=== PATIENT | male | born 1955 | race African-American/Black ===

== ENCOUNTER 2016-08-26 11:09 | Day surgery (SDC) | payer BC ==
[~2016-08-26 11:09] MED LIST: ACETAMINOPHEN 1000MG/100 ML PREMIX IV ONE; CEFAZOLIN 2 Gram 50 ML IVPB ONE; FAMOTIDINE 20MG TABLET PO ONE; MECLIZINE 25 MG TABLET PO ONE; METOCLOPRAMIDE 10 MG TABLET PO ONE
[2016-08-26 11:19] LABS: HEMATOCRIT 40.6 % (42.0-52.0); HEMOGLOBIN 13.3 gm/dl (14.0-18.0); MEAN CELL VOLUME 84.1 fl (81-97); MEAN CORPUSCULAR HEMOGLOBIN 27.5 pg (27-33); MEAN CORPUSCULAR HGB CONC 32.8 g/dl (32-36); PLATELET COUNT 325 K/uL (130-400); RED BLOOD COUNT 4.83 M/uL (4.40-5.70)
[2016-08-26 11:30] LABS: PLATELET ESTIMATE NORMAL (NORMAL)
[2016-08-26 11:35] LABS: BLOOD UREA NITROGEN 15 mg/dL (9-20); EST GLOMERULAR FILTRATION RATE > 60 ml/min; GLUCOSE,RANDOM 111 mg/dL (70-110)
[2016-08-26] MEDS ORDERED: LIDOCAINE 2% MDV (20MG/ML) 20ML VIAL IV ONE (15:36)
[2016-08-26] MEDS ORDERED: EPHEDRINE SULFATE 50 MG/ML ML IV ONE (15:36)
[2016-08-26] MEDS ORDERED: MIDAZOLAM HCL 2MG/2ML VIAL IV ONE (15:36)
[2016-08-26] MEDS ORDERED: HYDROMORPHONE HCL 2 MG/ML VIAL IV ONE (15:36)
[2016-08-26] MEDS ORDERED: KETOROLAC 30 MG/ML VIAL IVP ONE (15:36)
[2016-08-26] MEDS ORDERED: PROPOFOL 10 MG/ML VIAL IV ONE (15:36)
[2016-08-26] MEDS ORDERED: HYDROCODONE/APAP 7.5/325MG TABLET PO ONE (15:39)
--- NOTE | 2016-08-27 14:46 | Operative Note ---
DATE OF SURGERY: 08/26/2016. SURGEON: Hakeem Hale D.O. REFERRING PHYSICIAN: Alden Hubbard D.O. PREOPERATIVE DIAGNOSES: COMMINUTED DISPLACED FRACTURE OF THE RIGHT FIFTH METACARPAL. POSTOPERATIVE DIAGNOSES: COMMINUTED DISPLACED FRACTURE OF THE RIGHT FIFTH METACARPAL. OPERATIVE PROCEDURE: Open reduction and internal fixation of the right fifth metacarpal. DESCRIPTION OF PROCEDURE: This 61-year-old male was taken to the operating room and was placed in the supine position on the operating room table where general anesthesia was induced. The right upper extremity was elevated and prepped with Hibiclens and draped in the usual sterile fashion. It was exsanguinated and the tourniquet inflated to 250 mm Hg. A longitudinal incision was made overlying the fifth metacarpal on the dorsal surface of the hand. Dissection was carried down through the skin and subcutaneous tissue. The patient was seen to have rupture of the extensor brevis tendon. The proximal edge could not be found. However, the patient did have active flexion and extension of his finger prior to the surgery. At the completion of the procedure, we repaired this to the extensor tendon. The radial nerve was identified and retracted. The superficial veins were also retracted. An incision was made in the periosteum after retracting the tendons in a radial direction. Subperiosteal elevation over the edges of the fracture was performed to expose them. There was a butterfly fragment ulnarly. We irrigated and debrided this and removed clot and debris from the fracture site. We were then able to manipulate the fracture into anatomic position and applied a 6-hole titanium plate. There was some comminution on the ulnar aspect of the bone. Therefore the plate was placed slightly more radially. Once this had been fixed, the position and alignment of the fracture was confirmed on the image intensifier. It was found to be satisfactory. Once all screws had been placed, the wound was again irrigated. The C-arm demonstrated satisfactory position and alignment of the fracture fragments as well as the hardware. The periosteum was closed with 4-0 Vicryl suture and repair of tendon was performed as described above. The subcutaneous tissue was also closed with 4-0 Vicryl and the skin with a running 4-0 nylon suture. Sterile dressings with plaster splint immobilization were applied with the wrist in slight dorsiflexion and the metacarpophalangeal flexed at about 20 degrees. GROSS PATHOLOGY: This patient had a comminuted fracture of the midshaft of the right fifth metacarpal. Butterfly fragment was present ulnarly with some more mild comminution on the ventral surface. A 6-hole plate was applied in the manner described above. Hakeem Hale D.O. Date Time Job Number: [id number] [id number]
== END 2016-08-26 15:20 | disposition home or self-care (01) ==
LOC: SUR 11:09
PROVIDERS: ATTEND Orthopaedic Surgery
DX: S62.326B Displaced fracture of shaft of fifth metacarpal bone, right hand, initial encounter for open fracture (principal); Z86.718 Personal history of other venous thrombosis and embolism; Z79.01 Long term (current) use of anticoagulants; I10 Essential (primary) hypertension; E78.00 Pure hypercholesterolemia, unspecified; J44.9 Chronic obstructive pulmonary disease, unspecified
CPT/HCPCS: 80048; 85027; 76000; 93005; 93010; 26615; 01830; J1885; J1170; J0690